=== PATIENT | female | born 1960 | race Caucasian/White ===

== ENCOUNTER → 2021-08-14 | Outpatient (CLI) | payer BC ==
[~2021-08-14] MED LIST: ALBU90OI6 INH
== END | disposition home or self-care (01) ==
LOC: LAB SHORT 11:45 → LAB 11:45
DX: R35.0 Frequency of micturition (principal)
CPT/HCPCS: 87086

== ENCOUNTER 2024-12-19 08:03 | Day surgery (SDC) | payer MEDICARE ==
[~2024-12-19] VITALS: Ht 157.5 cm; Wt 58.4 kg
[~2024-12-19 08:03] MED LIST changes: +ATEN25 PO; +Lactated Ringer's 1,000 ML IV ONE; +METHI10 PO; +propofoL 50 ML IV ONE
[2024-12-19] MEDS ORDERED: OMEGA-3 FISH O1 EA21 (08:48)
[2024-12-19] MEDS ORDERED: CHOLINE500 MG (08:49)
[2024-12-19] MEDS ORDERED: Lactated Ringer's 1,000 ML IV ONE (09:23)
[2024-12-19 11:11] VITALS: BP 105/66
== END 2024-12-19 10:45 | disposition home or self-care (01) ==
LOC: ORSCSDS 08:03
PROVIDERS: Surgery
PROC: 0DJD8ZZ Inspection of Lower Intestinal Tract, Via Natural or Artificial Opening Endoscopic (ICD-10-PCS; principal; 2024-12-19 09:30)
DX: Z12.11 Encounter for screening for malignant neoplasm of colon (principal); K57.30 Diverticulosis of large intestine without perforation or abscess without bleeding; I10 Essential (primary) hypertension; E05.90 Thyrotoxicosis, unspecified without thyrotoxic crisis or storm; Z79.899 Other long term (current) drug therapy
CPT/HCPCS: J2704; J7120